=== PATIENT | female | born 1995 | race Caucasian/White ===

== ENCOUNTER 2022-12-10 17:16 | Emergency (ER) | payer OTHER, SELFPAY ==
--- NOTE | 2022-12-10 17:21 | ED.URI ---
HPI - URI/Sore Throat General Stated Complaint: Upper Respiratory Time Seen by Provider: 12/10/22 17:32 Source: patient and RN notes reviewed Mode of arrival: ambulatory Limitations: no limitations History of Present Illness HPI Narrative: 27-year-old female who is 18 weeks presents with concern for right ear pain and cough. Reports history of asthma, she has been using her albuterol inhaler and nebulizer. She has run out of her nebulizer solution. She reports she last used her inhaler prior to arrival. She denies fever, aches, chills sweats. Reports her ear pain is worsening, denies hearing changes or drainage from the ear. She denies chest pain, reports some upper back pain. Reports she has been taking Mucinex MD elicited complaint: cough and other (Ear pain) Related Data Home Medications Medication Instructions Recorded Confirmed albuterol sulfate 90 mcg/actuation 2 puff inhalation Q4H PRN sob 12/10/22 12/10/22 aerosol inhaler famotidine 20 mg tablet 20 mg PO DAILY 12/10/22 12/10/22 fluticasone propionate 50 See Rx Instructions .Route .COMPLEX 12/10/22 12/10/22 mcg/actuation nasal spray,suspension hydrocortisone-aloe vera 1 % See Rx Instructions .Route .COMPLEX 12/10/22 12/10/22 topical cream loratadine 10 mg tablet (Claritin) 10 mg PO DAILY 12/10/22 12/10/22 Allergies Allergy/AdvReac Type Severity Reaction Status Date / Time No Known Allergies Allergy Mild Unverified 12/10/22 17:39 Review of Systems Review of Systems: CONSTITUTIONAL: Reports malaise. Denies chills, sweats, or fever. EYES: Denies visual changes, redness, or discharge. ENT: Reports rhinorrhea, congestion, right otalgia CARDIOVASCULAR: Denies chest pain, palpitations, or edema. RESPIRATORY: Reports cough, chest congestion Denies dyspnea. GASTROINTESTINAL: Denies abdominal pain, nausea, vomiting, diarrhea SKIN: Denies rash or itching. MUSCULOSKELETAL: Denies myalgia. NEUROLOGIC: Denies headache. All systems reviewed & are unremarkable except as noted in HPI and below PMFSH Comments At time of signature, agree with nursing past medical, surgical, social and family history. There is no relevant family history pertinent to the presenting complaint Exam Narrative: GENERAL: Well-appearing, well-nourished, and in no acute distress. HEAD: Normocephalic EYES: PERRLA, conjunctivae clear ENT: Nares clear, clear discharge. Mucous membranes moist. Left tM pearly angel with dull light reflex, right TM erythematous and bulging; no tragal tenderness. Oropharynx not erythematous without lesions. Tonsils not enlarged and without exudate, no drooling, no hoarseness, no trismus, uvula midline. NECK: Supple. No lymphadenopathy CHEST: Clear to auscultation, breath sounds equal. No wheezing, rhonchi, rales, or stridor. No respiratory distress, speaks in full sentences. HEART: Regular rate and rhythm. No murmur heard. SKIN: Warm, dry, no rash. NEURO: Alert and oriented x3. PSYCH: Normal mood and affect Course Course Emergency Course: Patient is aware of diagnosis, understands and agrees to treatment plan. Anticipatory guidance given. Patient agrees to follow-up as directed and is aware of reasons to seek care at the emergency department. Portions of this record may have been created with voice recognition software Level of Care: Express Care Visit Vital Signs Vital signs: Reviewed. MDM - URI/Sore Throat MDM Narrative Medical decision making narrative: Differential diagnosis considered: West virus, strep pharyngitis, allergic rhinitis, upper respiratory tract infection, sinusitis, rhinosinusitis, nasopharyngitis. viral pharyngitis, otitis media, otitis externa, pneumonia, bronchitis, viral cough syndrome, viral syndrome, and influenza. Exam findings show no acute concerns or changes; patient is non-toxic appearing and is in no distress. Patient is appropriate for outpatient treatment and follow-up. Lab Data Attestation: I r
[2022-12-10 17:22] VITALS: BP 151/79; PULSE 102; RESP 16; TEMP 36.8; O2SAT 98
== END 2022-12-10 17:50 | disposition home or self-care (01) ==
PROVIDERS: Emergency Provider Nurse Practitioner; PCP Physician Assistant
DX: H66.91 Otitis media, unspecified, right ear (principal); J45.901 Unspecified asthma with (acute) exacerbation
CPT/HCPCS: 99203; G0463

== ENCOUNTER 2023-09-03 11:43 | Emergency (ER) | payer OTHER, SELFPAY ==
[2023-09-03 12:09] VITALS: BP 146/86; PULSE 99; RESP 18; TEMP 36.8; O2SAT 97
--- NOTE | 2023-09-03 13:53 | ED.GENADULT ---
HPI - General Adult General Chief complaint: Upper Respiratory Infection Stated complaint: Right Ear Pain/Congestion/ Source: patient Mode of arrival: ambulatory Limitations: no limitations History of Present Illness HPI narrative: Patient presents for evaluation of respiratory symptoms for the last 7-10 days. Symptoms include sinus congestion, thick yellow discharge from the nares, sore throat and bilateral otalgia. She has a history of sinus infections and this feels similar. Several family members in the household have similar symptoms. In fact her daughter is being evaluated here for similar symptoms right now. She has experience a fever but denies chills, nausea, vomiting. She does have a mild cough. She is a daily smoker. Related Data Home Medications Medication Instructions Recorded Confirmed albuterol sulfate 90 mcg/actuation 2 puff inhalation Q4H PRN sob 12/10/22 12/10/22 aerosol inhaler famotidine 20 mg tablet 20 mg PO DAILY 12/10/22 12/10/22 fluticasone propionate 50 See Rx Instructions .Route .COMPLEX 12/10/22 12/10/22 mcg/actuation nasal spray,suspension loratadine 10 mg tablet (Claritin) 10 mg PO DAILY 12/10/22 12/10/22 citalopram 20 mg tablet mg 09/03/23 fluticasone propionate 230 inhalation 09/03/23 mcg-salmeterol 21 mcg/actuation HFA inhaler (Advair HFA) Allergies Allergy/AdvReac Type Severity Reaction Status Date / Time No Known Allergies Allergy Mild Unverified 09/03/23 12:33 Review of Systems Review of Systems: CONSTITUTIONAL: Reports fever. Denies chills. EYES: Denies visual changes, redness, or discharge. ENT: Reports sinus congestion thick yellow discharge from the nares. Reports sore throat and bilateral otalgia. CARDIOVASCULAR: Denies chest pain, palpitations, or edema. RESPIRATORY: Reports cough. Denies shortness of breath. GASTROINTESTINAL: Denies abdominal pain, nausea, vomiting, or diarrhea. GENITOURINARY: Denies dysuria or hematuria. SKIN: Denies rash or itching. MUSCULOSKELETAL: Denies back pain, joint pain, or myalgia. NEUROLOGIC: Denies headache, numbness, dizziness, or weakness. PSYCHIATRIC: Denies anxiety or depression. [facility] Past Medical History Medical History Asthma Surgical History Surgical History No pertinent past surgical history Family History Family History Mother Family history non-contributory Social History Social History Smoking status: Current every day smoker Substance use: never Living arrangements: with family Gender identity (if verbalized by the patient): Female Sexual Orientation (if Verbalized by the Patient): Straight or Heterosexual Spiritual care concerns: No Exam Narrative: GENERAL: Well-appearing, well-nourished, and in no acute distress. HEAD: Normocephalic, atraumatic. EYES: PERRLA and EOMI. ENT: There is thick yellow discharge in the nares. There is posterior pharyngeal erythema without exudate. Uvula is midline. Right tympanic membrane erythema. There is also erythema in the right ear canal. NECK: Supple. No adenopathy or masses. No carotid bruits or JVD CHEST: Clear to auscultation. No respiratory distress. No wheezes rales or rhonchi HEART: Regular rate and rhythm. No murmur heard. Normal peripheral pulses. ABDOMEN: Soft, nontender, nondistended, normal active bowel sounds. EXTREMITIES: Normal range of motion. No edema. SKIN: Warm, dry, no rash. NEURO: No focal deficits. Alert and oriented x3. PSYCH: Normal mood and affect. Course Course Emergency Course: This is a 28-year-old female who presented for evaluation of sick symptoms. She meets criteria for ABRS based upon duration of time in which she has been symptomatic, presence of mucopurule
== END 2023-09-03 13:54 | disposition home or self-care (01) ==
PROVIDERS: Emergency Provider Nurse Practitioner; PCP Physician Assistant
DX: J01.00 Acute maxillary sinusitis, unspecified (principal); H60.501 Unspecified acute noninfective otitis externa, right ear; Z20.822 Contact with and (suspected) exposure to COVID-19; F17.200 Nicotine dependence, unspecified, uncomplicated; J45.909 Unspecified asthma, uncomplicated
CPT/HCPCS: 87081; 87147; 87426; 87804; 87880; 99213; G0463

== ENCOUNTER 2023-09-26 18:30 | Emergency (ER) | payer OTHER, SELFPAY | END 2023-09-26 19:28 | disposition left against medical advice (07) | LOC: EXPBETH 18:32 | PROVIDERS: Emergency Provider Registered Nurse; PCP Physician Assistant | DX: Z53.21 Procedure and treatment not carried out due to patient leaving prior to being seen by health care provider (principal) | CPT/HCPCS: 99199 ==